=== PATIENT | female | born 1945 | race Caucasian/White ===

== ENCOUNTER → 2016-06-18 | Outpatient (CLI) | payer OTHER ==
[~2016-06-18] MED LIST: NAPROXEN PO
--- NOTE | ~2016-06-18 | BD1 ---
[facility] A Service of [facility] & [facility] RADIOLOGY TEXT RESULTS PATIENT: MALKA HASKINS LOCATION: [facility] : 49 UNIT #: [id number] AGE: [address]: SALTY ARREDONDO APRN SEX: F ORDER DR: [id number] [facility] [address] [place], [place] [address] [id number] O MR#: [id number] Acc #: [id number] NAME: MALKA HASKINS : 1945 SEX: F STUDY DATE/TIME: 06/18/2016 9:27 UNIT: [facility] ROOM: STUDY DESCRIPTION: BD Dexa Bone Dens 1+ Site Attending Physician: Wilder Arredondo Aprn Referring Physician: Braeden Garcia M.D. Ordering Physician: Wilder Arredondo Aprn Primary Care Physician: Braeden Garcia M.D. MEDICAL IMAGING REPORT This report is preliminary unless electronic signature is present EXAM DXA scan 06/18/2016 HISTORY Status post menopause with no hormone replacement therapy. Osteopenia. Hyperthyroidism. Thyroid medication. Hypertension with blood pressure medication. FINDINGS Bone mineral density in the lumbar spine from L1-L4 was 0.897 g/cm2 which is 1.4 standard deviations below the mean when compared to the young adult reference population which is characteristic of osteopenia. This is 0.6 standard deviations above the mean when compared to the age-matched population. Bone mineral density in the left femoral neck was 0.824 g/cm2 which is 0.2 standard deviations below the mean when compared to the young adult reference population which is within the range of normal. This is 1.2 standard deviations above the mean when compared to the age-matched population. IMPRESSION Bone mineral density in the lumbar spine characteristic of osteopenia and within the left hip within the range of normal. Dictated by... Von Ragland M.D. THIS IS AN ELECTRONICALLY VERIFIED REPORT Von Ragland M.D. at 06/19/2016 3:38 PM KEN/livia TD: 06/18/2016 16:31 JOB #: [id number] [facility] A Service of [facility] & [facility] RADIOLOGY TEXT RESULTS PATIENT: MALKA HASKINS LOCATION: [facility] #: [id number] : [birth year] UNIT #: [id number] AGE: [address]: SALTY ARREDONDO APRN SEX: F ORDER DR: MEDICAL IMAGING REPORT Page 1 of 1 COPY
== END | disposition home or self-care (01) ==
LOC: CWCC 09:04
DX: M81.0 Age-related osteoporosis without current pathological fracture (principal)
CPT/HCPCS: 77080

== ENCOUNTER → 2016-09-10 | Outpatient (CLI) | payer OTHER ==
--- NOTE | ~2016-09-10 | US6 ---
[facility] A Service of [facility] & [facility] RADIOLOGY TEXT RESULTS PATIENT: MALKA HASKINS LOCATION: [facility] : 49 UNIT #: [id number] AGE: [address]: HUGO BROWN APRN SEX: F ORDER DR: [id number] [facility] [address] [place], [place] [address] [id number] O MR#: [id number] Acc #: [id number] NAME: MALKA HASKINS : 1945 SEX: F STUDY DATE/TIME: 09/10/2016 10:34 UNIT: [facility] ROOM: STUDY DESCRIPTION: US Abdominal Limited Referring Physician: Braeden Garcia M.D. Ordering Physician: Tiffany Brown M.D. Primary Care Physician: Braeden Garcia M.D. MEDICAL IMAGING REPORT This report is preliminary unless electronic signature is present EXAM Right upper quadrant ultrasound 09/10/2016 HISTORY Right upper quadrant abdominal pain for 2 months. Abdominal bloating and distension. FINDINGS Ultrasound examination of the gallbladder is negative. There is no cholelithiasis, gallbladder wall thickening, or bile duct dilatation. The visualized liver is negative. IMPRESSION Negative gallbladder ultrasound examination. Dictated by... Von Ragland M.D. THIS IS AN ELECTRONICALLY VERIFIED REPORT Von Ragland M.D. at 09/11/2016 10:18 AM KEN/bobby TD: 09/10/2016 17:19 JOB #: [id number] MEDICAL IMAGING REPORT Page 1 of 1 COPY
== END | disposition home or self-care (01) ==
LOC: CWCC 09:16
DX: R10.11 Right upper quadrant pain (principal)
CPT/HCPCS: 76705